=== PATIENT | male | born 1985 | race Caucasian/White ===

== ENCOUNTER 2019-01-13 17:26 | Emergency (ER) | payer SELFPAY ==
[2019-01-13 17:27] VITALS: BP 152/125; PULSE 101; RESP 18; TEMP 36.6; O2SAT 100; BMI 22.7
--- NOTE | 2019-01-13 17:42 | ED.DCSUM_ITS ---
- ER Visit Summary Date of Service: 01/13/19 Chief Complaint: Suicidal ideation History of Present Illness: The patient is a 33 M who presents via police because the police report patient was having suicidal thoughts. Patient states he took 8 Valium tablets today because he wanted to sleep until tomorrow m orning. Patient denies any suicidal ideations. Patient states he was having an argument with his and told her that if she does not pick him up tomorrow when he wakes up he is filing for divorce. Patient states that his is cheating on him with her drug dealer. Patient states his uses methamphetamines frequently. Patient admits to using marijuana. Patient states he had used methamphetamines in the past but currently does not use them. Patient denies any chest pain or shortness of breath. Patient denies any nausea or vomiting. Physical Examination: Vital signs are stable except for an elevated blood pressure 152/125 and a mild tachycardia of 101. Patient is afebrile. Patient is in no acute distress. Patient is anxious and agitated on examination. Patient denies any suicidal or homicidal ideations at the present time. Oral mucosa is pink and moist. Neck is supple. Trachea is midline. There is no JVD noted. Heart was regular rate and rhythm. Lungs are clear and equal bilateral. Abdomen is soft. Bowel sounds are normal. There is no tenderness. There is no guarding noted. Skin is warm dry. Cranial nerves II through XII are intact. There are no focal motor or sensory deficits noted. Test Results: BC and basic metabolic profile was normal. Urine tox screen was positive for amphetamines, benzodiazepines, and cannabinoids. Serum alcohol level was negative. Emergency Department Course and Treatment: Patient was observed in the emergency department. Patient adamantly denies any suicidal or homicidal ideations. Patient was seen by crisis. She felt that the patient is able to contract for safety. Patient was instructed to follow-up with crisis in 1 to 2 days. Patient understood and was agreeable with the plan. All questions were answered. Disposition: Discharge home Impression: Agitation This note was generated with [employer] dictation software. It may contain incorrect words, spelling, and punctuation that were not noted in review of the chart prior to signing ED Disposition - Plan for ED Patient: Disposition: Home or Assisted Living Diagnosis: Benzodiazepine overdose Instructions: CONTRACT, No Harm Referrals: Care Physician,No Primary [Primary Care Provider] - Counseling,Center [GROUP OF PHYSICIANS] - As soon as possible
[2019-01-13 17:48] LABS: Absolute Lymphocyte Count 2.13 X10^3/uL (0.83-4.51); Basophil# 0.03 X10^3/uL; Basophil% 0.5 % (0-1); Eosinophil# 0.06 X10^3/uL; Hemoglobin 16.3 g/dL (13.0-16.5); Lymphocyte # 2.13 X10^3/ul (4.0); Lymphocyte % 36.7 % (19-41); Mean Corp Hgb Conc 34.7 g/dL (32-36); Mean Corpuscular Hgb 29.5 pg (27.0-32.0); Mean Platelet Vol. 9.5 fl (6.2-12.0); Monocyte# 0.58 X10^3/uL; NRBC Flagged by Analyzer 0 % (0-5); Neutrophil % 51.6 % (47-70); Platelet Count 185 K/mm3 (150-450); RBC Distribution Width SD 37.2 fl (35.1-43.9); Red Blood Count 5.53 M/mm3 (4.6-6.2); White Blood Count 5.8 K/mm3 (4.4-11.0)
--- NOTE | 2019-01-13 17:50 | ED.RN ---
PT PINK SLIPPER BY POLICE, 1:1 SITTER IN ROOM AT TIME OF ARRIVAL
[2019-01-13 18:08] LABS: Anion Gap 7 (5-15); BUN 12 mg/dL (7-18); BUN/Creat Ratio 11.4 RATIO (10-20); Calcium,Total 8.8 mg/dL (8.5-10.1); Chloride 107 mmol/L (98-107); Creatinine, Serum 1.05 mg/dL (0.70-1.30); EST Glomerular Filtration Rate 86 mL/min (>60); Est Glom Filt Rate - Afr Amer 104 mL/min (>60); Estimated Creatinine Clearance 113.79 ml/min; Glucose 92 mg/dL (74-106); Potassium 3.7 mmol/L (3.5-5.1); Sodium Level 139 mmol/L (136-145)
[2019-01-13 18:13] LABS: Alcohol, Blood (Medical)-Serum < 3.0 mg/dL
--- NOTE | 2019-01-13 18:13 | ED.RN ---
PT REFUSING MEAL TRAY. THIS NURSE SPOKE WITH THE PT TO CONFIRM HE DOES NOT WANT THE MEAL
[2019-01-13 20:19] LABS: Amphetamine Urine VISTA POSITIVE (<1000 ng/mL); Barbiturate Urine VISTA NEGATIVE (< 200 ng/mL); Benzodiazepine Urine VISTA POSITIVE (< 200 ng/mL); Cocaine Urine VISTA NEGATIVE (< 300 ng/mL); Ecstacy Urine VISTA NEGATIVE (< 500 ng/mL); Methadone Urine VISTA NEGATIVE (< 300 ng/mL); PCP Urine VISTA NEGATIVE (< 25 ng/mL); THC Urine VISTA POSITIVE (< 50 ng/mL); Vista UDS pH Range 5
[2019-01-13 20:29] VITALS: RESP 18
[2019-01-13 21:23] VITALS: BP 145/88; PULSE 99; RESP 18; O2SAT 99
--- NOTE | 2019-01-13 21:23 | ED.RN ---
3 bags of personal belongings given to patient. PT borrowed [facility] cell phone to call for ride home. Discharge paperwork given, Counseling paperwork given. All questions answered, no further concerns.
== END 2019-01-13 21:24 | disposition home or self-care (01) ==
PROVIDERS: Emergency Provider Emergency Medicine
DX: R45.1 Restlessness and agitation (principal); F12.90 Cannabis use, unspecified, uncomplicated; F15.90 Other stimulant use, unspecified, uncomplicated
CPT/HCPCS: 80048; 80307; 80320; 85025; 99283; G0480

== ENCOUNTER 2020-02-09 19:45 | Emergency (ER) | payer MEDICAID, SELFPAY ==
[2020-02-09 19:48] VITALS: BP 164/110; PULSE 127; RESP 18; TEMP 36.9; O2SAT 98; BMI 27.7
[2020-02-09 20:18] VITALS: BP 143/82; PULSE 105; RESP 16; O2SAT 96
--- NOTE | 2020-02-09 20:33 | ED.DCSUM_ITS ---
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 methamphetamine. Patient injected what he thought was methamphetamine and became unresponsive. He was resuscitated with Narcan. He arrives alert oriented. He seems slightly anxious. He is tachycardic. He denies headache, visual, ocular auditory symptoms. He does report mild nasal congestion. No sore throat. Denies cough or shortness of breath. Nuys chest discomfort. He denies nausea, vomiting diarrhea. He states this is never happened to him before. Prior similar symptoms: No Recent Illness/Hospitalization: No - Past Medical History (1) IV drug user Status: Acute Past Medical History - Allergies and Home Meds Allergies/Adverse Reactions: Allergies No Known Allergies Allergy (Verified 02/09/20 19:52) Primary Care Physician: Care Physician,No Primary [Primary Care Provider] - Prior records reviewed: No Surgical History: no surgical history Lives: Spouse/ Significant Other Smoking Status: Current every day smoker Alcohol: Rare Drugs: - - Methamphetamine Review of Systems General: Denies: Chills, Fever, Malaise Eyes: Denies: Visual changes - bilaterally, Blurred Vision - bilaterally ENT: Denies: Rhinorrhea, Sore throat Cardiovascular: Reports: - - There is no history medic fever, heart murmur, SBE or being immune suppressed.. Denies: Chest pain, Palpitations Respiratory: Denies: Dyspnea, Cough, Dyspnea on exertion Gastrointestinal: Denies: Nausea, Vomiting, Diarrhea Musculoskeletal: Denies: Myalgias, Arthralgias Neurological: Denies: Headache, Weakness Hematologic: Denies: Easy bruising, Easy bleeding Physical Exam Vital Signs/Narrative: Vital Signs Temp Pulse Resp BP Pulse Ox 02/09/20 20:18 105 H 16 143/82 H 96 02/09/20 19:48 98.4 F 127 H 18 164/110 H 98 Inital Vital Signs reviewed: Yes General: Well nourished, Well developed, - - Is slightly anxious and animated. Head: Normocephalic, Atraumatic Eyes: Perrl, EOMI. Negative for: Pale conjunctiva, Scleral icterus ENT: Moist mucous membranes, No rhinorrhea Neck: Supple, Nontender, No lymphadenopathy, No JVD Cardiovascular: Regular rhythm, No murmurs, Normal S1, Normal S2, Tachycardia Respiratory: No distress, CTA bilaterally Abdomen: Soft, Nontender, Nondistended, Normal bowel sounds Rectal: Deferred Back: Nontender, Normal Inspection Skin: Normal color, No rash, - - Emery noted right and left upper extremity Neurological: Alert, Oriented x3, Cranial nerves II-XII grossly intact, Normal Strength, Normal Sensation Psychological: - - Slightly anxious Diagnostic/Tx/Re-eval - Medical Decision Making Since patient required Narcan and half-life of Narcan is 3060 minutes will observe for 45 minutes in the department since he received Narcan 10 minutes prior to arrival. Since patient remains awake and alert at 2034 he will be discharged to home with appropriate home-going instructions ED Disposition - Plan for ED Patient: Disposition: Home or Assisted Living Diagnosis: Respiratory arrest, Opiate or related narcotic overdose Instructions: ED Overdose Opiate Referrals: Care Physician,No Primary [Primary Care Provider] - [facility] [STAFF PHYSICIAN] - As soon as possible
[2020-02-09 20:48] VITALS: PULSE 100; RESP 20; O2SAT 96
== END 2020-02-09 20:49 | disposition home or self-care (01) ==
PROVIDERS: Emergency Provider Emergency Medicine
DX: R09.2 Respiratory arrest (principal); T40.601A Poisoning by unspecified narcotics, accidental (unintentional), initial encounter; F17.200 Nicotine dependence, unspecified, uncomplicated
CPT/HCPCS: 99285

== ENCOUNTER 2020-04-11 17:02 | Emergency (ER) | payer MEDICAID, SELFPAY ==
[2020-04-11 17:03] VITALS: BP 144/101; PULSE 101; RESP 16; TEMP 36.7; O2SAT 100; BMI 25.0
--- NOTE | 2020-04-11 17:14 | ED.DCSUM_ITS ---
- ER Visit Summary Date of Service: 04/11/20 Chief Complaint: [Dental pain] History of Present Illness: The patient is a 34 M [presents to the emergency department complaint of dental pain that he has had chronically for quite some time. Patient states that he is got a broken carried wisdom tooth that is c ausing him a lot of discomfort. Having hard time sleeping at night. Patient states that he is got an appointment in July to see a oral surgeon to have it removed and has not been able to find anybody that would take his insurance to see him sooner. Patient denies any fevers. He has no medical history otherwise.] Physical Examination: [HEENT-PERRLA, EOMI. Cranial nerves II through XII grossly intact. TMs clear. Mucous membranes moist. No adenopathy. Titian- patient has a broken and carried right lower third molar that is tender to palpation. No gingival erythema or abscess noted. No facial cellulitis. No adenopathy. Uvula midline without trismus. Cardiovascular-regular rate and rhythm without murmur or ectopy Lungs-clear to auscultation, chest wall stable without crepitus or subcu emphysema Abdomen-normoactive bowel sounds, soft, nontender, no rebound or rigidity, no peritoneal signs. Extremities-intact ?4, normal range of motion, normal pulses, atraumatic] Test Results: None [Indicated] Emergency Department Course and Treatment: [] Treatment Plan: [She will be given a prescription for clindamycin and a few [place] for pain. Patient will be given referral to oral surgeon in [facility].] Disposition: [Discharged home in stable condition] Impression: [Dental pain] This note was generated with [employer] dictation software. It may contain incorrect words, spelling, and punctuation that were not noted in review of the chart prior to signing ED Disposition - Plan for ED Patient: Referrals: Care Physician,No Primary [Primary Care Provider] -
--- NOTE | 2020-04-11 17:16 | DCINST.ED_ITS ---
ED Disposition - Plan for ED Patient: Instructions: ED Dental Cavity, ED Dental Pain Prescriptions: Clindamycin HCl [Cleocin] 300 mg PO Q6H #40 cap Prescription Printed Hydrocodone Bitart/Apap 5-325 [[place] 5MG-325MG] 1 tab PO Q4H PRN PRN 2 Days #10 tab PRN Reason: Pain Prescription Printed Referrals: Care Physician,No Primary [Primary Care Provider] - Eladio Manuel DDS [STAFF PHYSICIAN] - 5-7 Days
--- NOTE | 2020-04-11 17:44 | ED.RN ---
pt with hx of drug overdose. this brought to ed physician attention. pt acknowledges and depenses pain medication
== END 2020-04-11 17:46 | disposition home or self-care (01) ==
LOC: ED 17:23
PROVIDERS: Emergency Provider Emergency Medicine
DX: K08.89 Other specified disorders of teeth and supporting structures (principal); F17.200 Nicotine dependence, unspecified, uncomplicated
CPT/HCPCS: 99282

== ENCOUNTER 2020-04-15 04:19 | Emergency (ER) | payer MEDICAID, SELFPAY ==
[2020-04-15 04:19] VITALS: BP 164/98; PULSE 100; RESP 16; TEMP 35.8; O2SAT 100; BMI 29.9
--- NOTE | 2020-04-15 04:27 | ED.VISSUMM ---
- ER Visit Summary Date of Service: 04/15/20 Chief Complaint: Tooth pain History of Present Illness: The patient is a 34 M who presents with tooth pain. He has had this for over a week. He was seen here on April 11 and given clindamycin and what he says is Percocet what actually it is Stuart. He continues with pain. No fever, jaw swelling or facial swelling. He states that he is scheduled to see a dentist in July. He has not tried to get into any other appointments sooner. He is a smoker and continues to smoke. Physical Examination: Vital signs are reviewed. Mouth exam reveals a broken tooth #32. He has widespread dental decay with tenderness at tooth #32. There are no gingival abscesses noted. No Jomar's angina. He is handling his secretions normally. No cervical lymphadenopathy Test Results: None performed Emergency Department Course and Treatment: At this point I will give the patient a shot of Toradol here and change his antibiotics from clindamycin to penicillin. I will give him naproxen to take for pain at home. He will need to get any other further pain medications from a dentist. Treatment Plan: [] Disposition: Discharge Impression: Odontalgia This note was generated with [employer] dictation software. It may contain incorrect words, spelling, and punctuation that were not noted in review of the chart prior to signing ED Disposition - Plan for ED Patient: Disposition: Home or Assisted Living Instructions: ED Dental Pain Prescriptions: Naproxen [Naprosyn] 500 mg PO BID PRN #20 tab Transmission Status: Pending to [facility] Penicillin V Potassium 500 mg PO 4X/DAY #28 tab Transmission Status: Pending to [facility] Referrals: Care Physician,No Primary [Primary Care Provider] - April Livingston [NON-STAFF] -
[2020-04-15] MEDS: Penicillin Vk 250 MG Tablet 500 MG PO (04:38)
[2020-04-15] MEDS: Ketorolac 30 MG/ML Syringe IM (04:39)
[2020-04-15 04:41] VITALS: RESP 16
== END 2020-04-15 05:04 | disposition home or self-care (01) ==
LOC: ED 04:44
PROVIDERS: Emergency Provider Emergency Medicine
DX: K08.89 Other specified disorders of teeth and supporting structures (principal); F17.200 Nicotine dependence, unspecified, uncomplicated
CPT/HCPCS: 96372; 99282

== ENCOUNTER 2020-05-27 18:05 | Emergency (ER) | payer MEDICAID, SELFPAY ==
[2020-05-27 18:05] VITALS: BP 158/93; PULSE 101; RESP 16; TEMP 37.1; O2SAT 98; BMI 25.0
--- NOTE | 2020-05-27 19:55 | ED.DCSUM_ITS ---
- ER Visit Summary Date of Service: 05/27/20 Chief Complaint: Dental pain History of Present Illness: The patient is a 34 M with no primary care physician or dentist. He reports he has pain in his right mandibular third molar that began yesterday. It was a sharp pain is 10 of 10 at worst and is pain-free currently. Is worsened by eating. It is sensitive to hot and cold temperatures. Patient reports that he fell asleep in the waiting room when he woke up the pain was gone, but his face was swollen. Review of systems: General: No fever, chills, cold sweats. Cardiovascular: No chest pain, palpitations. Respiratory: No cough, shortness of breath, dyspnea on exertion. Gastrointestinal: No abdominal pain, nausea, vomiting, diarrhea, melena, or hematochezia. Genitourinary: No dysuria, frequency, hematuria. Skin: No rash. Neuro: No headache, numbness, weakness. Physical Examination: Vitals: Stable. Afebrile. Mouth: No trismus. No edema of the floor of the mouth. Obvious caries in the right mandibular third molar. The first, second molars are absent as are the fi rst and second premolars. He does have mild soft tissue swelling to his face. General: A&O x 3. NAD. Cardiovascular exam: Regular rate and rhythm, no murmur, rub or gallop. Respiratory exam: Clear to auscultation bilaterally. No wheezes or stridor. Abdominal exam: Soft, nontender, nondistended, normal bowel sounds. No peritoneal signs. Extremity: No clubbing, cyanosis, or edema. Emergency Department Course and Treatment: Patient no longer has pain. He was given clindamycin p.o. Treatment Plan: Patient be discharged on clindamycin. Instructed to follow-up with a dentist as soon as possible. He is given a list of local dentist. Return to the emergency department for any worsening symptoms. Disposition: To home in improved and stable condition. Impression: 1. Dental abscess. This note was generated with [employer] dictation software. It may contain incorrect words, spelling, and punctuation that were not noted in review of the chart prior to signing ED Disposition - Plan for ED Patient: Instructions: Common Myths About Pain Medications Prescriptions: Clindamycin [Cleocin] 300 mg PO 4X/DAY #80 capsule Referrals: Dentist,Your [STAFF PHYSICIAN] - As soon as possible
[2020-05-27] MEDS: Clindamycin HCl 150 MG Capsule 300 MG PO (20:32)
== END 2020-05-27 20:33 | disposition home or self-care (01) ==
LOC: ED 20:17
PROVIDERS: Emergency Provider Emergency Medicine
DX: K04.7 Periapical abscess without sinus (principal); F17.200 Nicotine dependence, unspecified, uncomplicated
CPT/HCPCS: 99283

== ENCOUNTER 2020-05-31 16:49 | Emergency (ER) | payer MEDICAID, SELFPAY ==
[2020-05-31 16:49] VITALS: BP 159/99; PULSE 95; RESP 16; TEMP 36.3; O2SAT 99; BMI 25.0
[2020-05-31] MEDS: Ketorolac 30 MG/ML Syringe IV (17:33)
[2020-05-31] MEDS: Ondansetron 4 MG/2 ML Vial IV (17:33)
--- NOTE | 2020-05-31 17:50 | ED.VISSUMM ---
- ER Visit Summary Date of Service: 05/31/20 Chief Complaint: Dental pain History of Present Illness: The patient is a 34 M presenting with dental pain and jaw swelling. Patient was seen in the ED 4 days ago for similar complaints. He states he has been on clindamycin and has been taking this regularly. He complains of increasing right lower jaw swelling. Denies fevers. Denies other complaints. Physical Examination: Vitals are stable. Patient is afebrile. Alert no acute distress. HEENT exam. right lower facial swelling Right lower molar tenderness with no surrounding fluctuance. No sublingual edema. Neck is supple. Lungs are clear and equal bilaterally. Heart is regular rate and rhythm. Extremities are unremarkable. Skin is warm and dry. No focal neurologic deficit. Remainder of exam is unremarkable. Emergency Department Course and Treatment: Patient was given Unasyn IV. He states he has been taking the clindamycin regularly. He will be started on Augmentin. Advised to follow-up with dentist. Advised return to ED for worsening complaints. Disposition: Discharge home Impression: Dental abscess This note was generated with [employer] dictation software. It may contain incorrect words, spelling, and punctuation that were not noted in review of the chart prior to signing ED Disposition - Plan for ED Patient: Referrals: Care Physician,No Primary [Primary Care Provider] -
--- NOTE | 2020-05-31 17:52 | ED.DEP ---
ED Disposition - Plan for ED Patient: Instructions: Dental Abscess Prescriptions: Amox/Clavulanate Tablet [Augmentin Tablet] 875 mg PO Q12H #20 tab Prescription Printed Referrals: Care Physician,No Primary [Primary Care Provider] -
== END 2020-05-31 18:38 | disposition home or self-care (01) ==
LOC: ED 17:40
PROVIDERS: Emergency Provider Emergency Medicine
DX: K04.7 Periapical abscess without sinus (principal)
CPT/HCPCS: 96365; 96375; 99283; J7050; A4216; J0295; J2405

== ENCOUNTER 2020-10-12 14:42 | Emergency (ER) | payer MEDICAID, SELFPAY ==
[2020-10-12 14:42] VITALS: BP 130/69; PULSE 96; RESP 14; TEMP 36.2; O2SAT 99; BMI 26.4
--- NOTE | 2020-10-12 15:41 | EDS_ITS ---
HPI History of Present Illness Chief Complaint: Laceration Informant: patient Narrative Narrative: Patient is a 40-year-old previously healthy male who presents to the emergency department for a cut to his right index finger. He states that the laceration occurred on Monday. He cleaned the wound out and superglue to it together. He ended up opening the wound back up yesterday after he struck his finger against a tree. He has been using ice over the area but this morning he woke up and the finger was swollen and tender. He denies any systemic symptoms including any fever/chills or nausea/vomiting. Of note patient is on amoxicillin and states he has 2 days left for a dental infection. He denies any significant painful finger movements. No other joints are painful or swollen. Patient states his last tetanus shot was within the past 5 years. PFSH PFSH Home Medications clindamycin HCl 300 mg PO 4X/DAY 04/15/20 [History Last Taken Unknown] naproxen 500 mg PO BID PRN #20 tab 04/15/20 [Rx Last Taken Unknown] penicillin V potassium 500 mg PO 4X/DAY #28 tab 04/15/20 [Rx Last Taken Unknown] clindamycin HCl 300 mg PO 4X/DAY #80 cap 05/27/20 [Rx Last Taken Unknown] amoxicillin-pot clavulanate 875 mg PO Q12H #20 tab 05/31/20 [Rx Last Taken Unknown] cephalexin 500 mg PO TID 7 Days #21 cap 10/12/20 [Rx Last Taken Unknown] sulfamethoxazole-trimethoprim [Bactrim DS] 1 tab PO BID 7 Days #14 tab 10/12/20 [Rx Last Taken Unknown] Allergy/AdvReac Type Severity Reaction Status Date / Time No Known Allergies Allergy Verified 10/12/20 14:42 Social History Smoking Status: Current every day smoker tobacco type: cigarettes ROS ROS ED Constitutional Constitutional ED: Denies chills or fever(s) Eyes Eyes: Denies change in vision ENT ENT ED: Denies epistaxis or rhinorrhea Cardiovascular Cardiovascular: Denies chest pain or palpitations Respiratory/Chest Respiratory/Chest: Denies cough, dyspnea or dyspnea on exertion Gastrointestinal Gastrointestinal: Denies abdominal pain, diarrhea, nausea or vomiting Musculoskeletal Musculoskeletal: Reports arthralgias; Denies back pain or neck pain Integumentary Reports rash Neurologic Neurologic: Denies dizziness, headache(s) or weakness EXAM Physical Exam Const Vital Signs: 10/12/20 14:42 Temperature 97.2 F L Temperature Source Temporal Pulse Rate 96 Respiratory Rate 14 Blood Pressure 130/69 H Blood Pressure Mean 89 Pulse Ox 99 Oxygen Delivery Method Room Air Positive well nourished and well developed General Appearance ED: well developed and NAD HEENT Reports normocephalic, head/scalp atraumatic and moist mucous membranes Eyes PERRL and EOMs intact bilaterally Neck supple Resp normal respiratory effort and clear to auscultation bilaterally Auscultation: Negative for rales, rhonchi or wheezes Cardio regular rate, regular rhythm and no murmurs Extremity Extremity Narrative: 1 cm linear laceration over right MCP of the right index finger. There is swelling, tenderness. He does have good range of motion. Does not help and passive flexion. No significant pain with extending the finger. Neurovascular intact. Low concern for flexor tenosynovitis. Neuro CN's II-XII intact bilaterally and no sensory deficits noted Sensorium / Orientation: alert Motor Exam: strength 5/5 throughout Psych mental status grossly normal MDM MDM MDM Narrative Medical decision making narrative: Patient presents the ED for finger infection after cut this past Monday. Patient is up-to-date on vaccinations. We will have him stop his amoxicillin he is currently on and start Bactrim and Keflex. No evidence of flexor tenosynovitis. Given warning signs for which to return to the ED for this. He will be discharged home in stable condition. Is to follow- up with his PCP. He understands and is agreeable this plan. All questions were answered. Discharge Plan Triage Chief Complaint: Laceration ED Provider: Javier Naranjo Dx/Rx/DC Orders Clinical Impression: Infected finger laceration Instructions: ED Laceration: Infected Repair Prescriptions: New cephalexin 500 mg capsule 500 mg PO TID 7 Days Qty: 21 RF: 0 sulfamethoxazole-trimethoprim [Bactrim DS] 800-160 mg tablet 1 tab PO BID 7 Days Qty: 14 RF: 0 No Action clindamycin HCl 150 MG capsule 300 mg PO 4X/DAY RF: 0 penicillin V potassium 500 MG tablet 500 mg PO 4X/DAY Qty: 28 RF: 0 naproxen 500 MG tablet 500 mg PO BID PRN Qty: 20 RF: 0 clindamycin HCl 150 MG capsule 300 mg PO 4X/DAY Qty: 80 RF: 0 amoxicillin-pot clavulanate 875 MG tablet 875 mg PO Q12H Qty: 20 RF: 0 Primary Care Provider: Care Physician,No Primary Referrals: Care Physician,No Primary [Primary Care Provider] - 2 Days for wound check Disposition Disposition: Home, Self Care Discharge Date/Time: 10/12/20 16:29
== END 2020-10-12 16:29 | disposition home or self-care (01) ==
LOC: ED 15:49
PROVIDERS: Emergency Provider Emergency Medicine
DX: S61.210A Laceration without foreign body of right index finger without damage to nail, initial encounter (principal); F17.210 Nicotine dependence, cigarettes, uncomplicated; X58.XXXA Exposure to other specified factors, initial encounter
CPT/HCPCS: 99282

== ENCOUNTER 2020-12-20 15:18 | Emergency (ER) | payer MEDICAID, SELFPAY ==
[2020-12-20 15:19] VITALS: BP 150/103; PULSE 110; RESP 16; TEMP 36.4; O2SAT 98; BMI 25.7
--- NOTE | 2020-12-20 15:54 | RAD_ITS ---
STUDY: X-RAY CHEST REASON FOR EXAM: Male, 35 years old. cough TECHNIQUE: Frontal portable view of the chest COMPARISON: None. FINDINGS: The lungs are clear and expanded. There is no demonstrated pleural abnormality. Normal size heart. Normal mediastinum and cristela. Normal visualized pulmonary arteries. Normal visualized aortic arch and descending thoracic aorta. Normal visualized thoracic spine. Normal visualized ribs, clavicles, and shoulders. There is no demonstrated abnormality of the visualized soft tissue structures of the upper abdomen. RAD/Chest 1 View (Portable) IMPRESSION: Normal x-ray examination of the chest. Electronically Signed: Georgia Gastelum MD at 17:26 EDT Tel , Service support ,
--- NOTE | 2020-12-20 15:58 | EX.ED.VIS.UR ---
HPI HPI - URI History of Present Illness Chief Complaint: Cough Informant: patient Onset/Context/Timing Onset: Days Context: Gradual Onset Timing: Continuous Current Severity: Mild Maximum Severity: Mild Associated Symptoms Associated Symptoms: Positive for Nasal Congestion, Nausea, Diarrhea, Shortness of Breath and Nonproductive cough; Negative for Vomiting and Hemoptysis Narrative Narrative: 35-year-old male noticing a past medical history currently on no medications. Does smoke. Recently was incarcerated for traffic violation. Said he is exposed to Covid while in prison. For the last 5 days he has had a sore throat, cough and shortness of breath. He is also had nausea and diarrhea but no vomiting. Prior similar symptoms: Yes Recent Illness/Hospitalization: No ROS ROS ED Review of Systems ROS Unobtainable: Denies due to encephalopathy Constitutional Constitutional ED: Reports chills and subjective; Denies fever(s) Eyes Eyes: Denies change in vision ENT ENT ED: Reports sore throat; Denies ear pain Cardiovascular Cardiovascular: Denies chest pain or palpitations Respiratory/Chest Respiratory/Chest: Reports cough and dyspnea Gastrointestinal Gastrointestinal: Reports diarrhea and nausea; Denies abdominal pain or vomiting Genitourinary Genitourinary ED: Denies dysuria Musculoskeletal Musculoskeletal: Reports myalgias Integumentary Denies rash Neurologic Neurologic: Denies headache(s) Psychiatric Psychiatric: Denies depression Endocrine Endocrinology: Denies polyuria Hematologic/Lymphatic Hematologic/Lymphatic: Denies easy bruising Allergic/Immunologic Allergic/Immunologic ED: Denies urticaria PFSH PFSH Home Medications NK 12/20/20 [History Last Taken Unknown] Allergy/AdvReac Type Severity Reaction Status Date / Time No Known Allergies Allergy Verified 12/20/20 15:22 Social History Smoking Status: Current every day smoker tobacco type: cigarettes EXAM Physical Exam Narrative Exam Narrative: 35-year-old male no acute distress vital signs stable afebrile. Pulse ox 90% on room air no signs hypoxia. HEENT exam unremarkable moist weeks membranes. No erythema or exudate. Neck nontender no lymphadenopathy. Lungs clear to auscultation bilaterally. Heart regular rhythm no murmur rate about 105. Abdomen soft nontender normal bowel sounds no peritoneal signs. Moving all 4 extremities. Calves nontender without edema or cords. Const Vital Signs: 12/20/20 15:19 12/20/20 15:53 Temperature 97.6 F L Temperature Source Temporal Pulse Rate 110 H Respiratory Rate 16 Respiratory Effort Normal Respiratory Depth Normal Respiratory Pattern Normal Blood Pressure 150/103 H Blood Pressure Mean 118 Pulse Ox 98 Oxygen Delivery Method Room Air Positive well nourished and well developed; Negative for obese, cachectic or contractures General Appearance ED: well developed and NAD; Negative for cachectic, contractures or pallor Nutritional Appearance: Negative for cachectic or obese HEENT normocephalic and atraumatic; Negative for scalp tenderness Face and Sinus: Negative for sinus tenderness or facial tenderness Eyes PERRL and EOMs intact bilaterally General Eye ED: Negative for pale conjunctiva Neck no lymphadenopathy, supple, no meningeal signs and no JVD General: Negative for anterior neck swelling Resp normal respiratory effort and clear to auscultation bilaterally Auscultation: Negative for rales, rhonchi or wheezes Cardio S1 normal heart sound, S2 normal heart sound and no murmurs Rate: tachycardic Rhythm: regular rhythm GI non-tender, non-distended and no masses Inspection: Negative for abdominal distention Auscultation: normoactive bowel sounds Palpation: soft; Negative for tender or guarding Back/Spine no CVA tenderness Extremity normal to inspection and full ROM General Extremety ED: Negative for cyanosis or tenderness General Extremity: Negative for cyanosis Neuro oriented x3 Sensorium / Orientation: alert, oriented to person, oriented to place and oriented to time Motor Exam: strength 5/5 throughout Psych mental status grossly normal Skin General Skin Exam: Negative for jaundice or pallor Lesions: no lesions Rashes: no rashes MDM MDM MDM Narrative Medical decision making narrative: 35-year-old male coming looks well vital signs stable. Rule out Covid versus other viral syndrome versus pneumonia. X-ray and Covid test being obtained. Repeat exam patient is doing well at 5:04 PM will be discharged home. Lab Data Attestation: I reviewed the patient's lab results. Lab results narrative: Rapid Covid test negative. Radiography Diagnostic Testing: Portable chest x-ray single view interpreted by myself shows no acute abnormality. Normal cardiac silhouette. Normal lung jj. No infiltrates. No pneumonia. No signs of Covid. Discharge Plan Triage Chief Complaint: Cough ED Provider: Ed Lowry Dx/Rx/DC Orders Prescriptions: No Action NK RF: 0 Primary Care Provider: Care Physician,No Primary
[2020-12-20 17:21] VITALS: PULSE 90; RESP 18; O2SAT 96
== END 2020-12-20 17:22 | disposition home or self-care (01) ==
PROVIDERS: Emergency Provider Emergency Medicine
DX: R05 Cough (principal); R19.7 Diarrhea, unspecified; R11.0 Nausea; F17.210 Nicotine dependence, cigarettes, uncomplicated
CPT/HCPCS: 71045; 87426; 99282; A4216

== ENCOUNTER 2020-12-23 00:43 | Emergency (ER) | payer MEDICAID, SELFPAY ==
[2020-12-23 00:44] VITALS: BP 145/87; PULSE 89; RESP 16; TEMP 37.1; O2SAT 97; BMI 25.7
--- NOTE | 2020-12-23 00:59 | RAD_ITS ---
STUDY: X-RAY CHEST REASON FOR EXAM: Male, 35 years old. cough TECHNIQUE: Single AP portable view of the chest. COMPARISON: 12/20/2020. FINDINGS: The lungs are clear and expanded. There is no demonstrated pleural abnormality. Normal size heart. Normal mediastinum and cristela. Normal visualized pulmonary arteries. Normal visualized aortic arch and descending thoracic aorta. Normal visualized thoracic spine. Normal visualized ribs, clavicles, and shoulders. There is no demonstrated abnormality of the visualized soft tissue structures of the upper abdomen. RAD/Chest 1 View (Portable) IMPRESSION: No acute cardiopulmonary disease. Electronically Signed: Ros Peterson MD at 2:35 EDT , Service support ,
[2020-12-23 01:16] VITALS: PULSE 83; RESP 18
[2020-12-23] MEDS: Ipratropium/Albuterol Sulfate 3 ML AMPUL.NEB INHALATION (01:16)
--- NOTE | 2020-12-23 01:25 | EX.ED.DYSGE1 ---
HPI History of Present Illness Chief Complaint: General Illness Informant: patient Narrative Narrative: Patient presented with complaints that he has every symptom of Covid except for the loss of taste. His smell is slightly decreased. This is been going on for about 6 days. About 8 days ago he got out of skilled nursing. He had been in a cell or in an area with 2 people who tested positive for Covid. He is coughing. He is not actually short of breath. He does have wheezing and he has been using his girlfriends inhaler. That does help. He states it has been so bad that he has anyone smoked for about a week. He did not get Covid vaccines at any time. He has had some mild nausea but can eat and drink. But he does not have much of an appetite. He has not had diarrhea. He has not vomited. He has diffuse myalgias. He has slight headache. No rashes. No dysuria. Nothing makes his symptoms better or worse. He was seen here couple days ago and had a negative Covid test. PFSH PFSH Medical History no medical history Home Medications acetaminophen [Tylenol] 650 mg PO Q4H PRN 12/23/20 [History Last Taken 12/23/20 00:30] albuterol sulfate [Ventolin HFA] 2 puff INHALATION Q4H PRN PRN #1 device 12/23/20 [Rx Last Taken Unknown] dexamethasone [Decadron] 6 mg PO DAILY #5 tab 12/23/20 [Rx Last Taken Unknown] ondansetron 4 mg PO Q8H 3 Days #9 tab 12/23/20 [Rx Last Taken Unknown] Allergy/AdvReac Type Severity Reaction Status Date / Time No Known Allergies Allergy Verified 12/20/20 15:22 Surgical History no surgical history Social History Smoking Status: Current every day smoker tobacco type: cigarettes ROS ROS ED Constitutional Constitutional ED: Reports chills, fever(s) and subjective Eyes Eyes: Denies blurry vision or change in vision ENT ENT ED: Reports rhinorrhea; Denies sore throat Cardiovascular Cardiovascular: Denies chest pain or palpitations Respiratory/Chest Respiratory/Chest: Reports cough; Denies dyspnea, dyspnea on exertion or sputum Gastrointestinal Gastrointestinal: Reports nausea; Denies abdominal pain, constipation, diarrhea, melena or vomiting Genitourinary Genitourinary ED: Denies dysuria Musculoskeletal Musculoskeletal: Reports arthralgias and myalgias Integumentary Denies rash Neurologic Neurologic: Reports headache(s); Denies paresthesias or weakness Psychiatric Psychiatric: Denies anxiety or depression Endocrine Endocrinology: Denies polydipsia or polyuria Allergic/Immunologic Allergic/Immunologic ED: Denies urticaria EXAM Physical Exam Const Vital Signs: 12/23/20 00:44 12/23/20 00:49 12/23/20 01:16 Temperature 98.8 F Temperature Source Temporal Pulse Rate 89 83 Respiratory Rate 16 18 Respiratory Effort Normal Respiratory Pattern Normal Blood Pressure 145/87 H Blood Pressure Mean 106 Pulse Ox 97 Oxygen Delivery Method Room Air 12/23/20 01:34 Temperature 98.8 F Temperature Source Temporal Pulse Rate 83 Respiratory Rate 18 Respiratory Effort Respiratory Pattern Blood Pressure 145/87 H Blood Pressure Mean 106 Pulse Ox 97 Oxygen Delivery Method Room Air Positive well nourished and well developed General Appearance ED: well developed and NAD HEENT Reports moist mucous membranes Negative for trauma or tenderness Eyes PERRL Neck no lymphadenopathy, supple and no JVD Chest Wall palpation of chest normal Resp normal respiratory effort Effort and Inspection: Negative for pain with movement Auscultation: wheezes; Negative for rales or rhonchi Cardio regular rate, regular rhythm and no murmurs GI normal to inspection, nondistended, normoactive bowel sounds and non-tender Palpation: soft Back/Spine no CVA tenderness Extremity normal to inspection General Extremety ED: Negative for edema or tenderness General Extremity: Negative for edema Neuro oriented x3 Sensorium / Orientation: alert Psych mental status grossly normal Skin no rashes or lesions noted MDM MDM MDM Narrative Medical decision making narrative: Patient's Covid screen is positive. His x-rays negative for acute process. Patient is not hypoxic. Patient does not meet any of the criteria for outpatient monoclonal antibodies. He is already about a week into the his symptoms. He is clinically doing well. I will get him something for nausea as he has had this off and on. I explained that the treatment is really symptomatic. He can use Tylenol rest fluids. I will write for an inhaler as he had some slight wheezing that is now better. He denies a history of asthma or COPD but is a longtime smoker. I will give him some steroids. This is primarily for the wheezing as I think he likely has bronchospastic disease. He has been using an inhaler and it has not resolved this. Radiography Diagnostic Testing: Radiology Impression Chest X-Ray 12/23/20 00:59 IMPRESSION: No acute cardiopulmonary disease. Electronically Signed: Ros Peterson MD at 2:35 EDT , Service support , Discharge Plan Triage Chief Complaint: General Illness ED Provider: Ravindra Aguirre Dx/Rx/DC Orders Clinical Impression: COVID-19, Acute bronchospasm Instructions: Caring for Someone Who Has COVID-19 Prescriptions: New dexamethasone [Decadron] 6 mg tablet 6 mg PO DAILY Qty: 5 RF: 0 albuterol sulfate [Ventolin HFA] 90 mcg/actuation HFA aerosol inhaler 2 puff inhalation Q4H PRN PRN (Reason: Wheezing) Qty: 1 RF: 0 ondansetron 4 mg tablet,disintegrating 4 mg PO Q8H 3 Days Qty: 9 RF: 0 No Action acetaminophen [Tylenol] 325 mg Tablet 650 mg PO Q4H PRN (Reason: Pain) RF: 0 Primary Care Provider: Care Physician,No Primary Referrals: Dex Still MD [STAFF PHYSICIAN] - 1 Week if not improving Care Physician,No Primary [Primary Care Provider] - Disposition Disposition: Home, Self Care
[2020-12-23] MEDS: Ondansetron ODT 4 MG Tablet PO (01:33)
[2020-12-23 01:34] VITALS: BP 145/87; PULSE 83; RESP 18; TEMP 37.1; O2SAT 97
[2020-12-23 03:05] VITALS: O2SAT 98
[2020-12-23] MEDS: dexAMETHasone 4 MG Tablet 6 MG PO (03:05)
== END 2020-12-23 03:06 | disposition home or self-care (01) ==
PROVIDERS: Emergency Provider Emergency Medicine
DX: U07.1 COVID-19 (principal); J98.01 Acute bronchospasm; F17.210 Nicotine dependence, cigarettes, uncomplicated
CPT/HCPCS: 71045; 87426; 94640; 99283

== ENCOUNTER 2021-12-19 13:36 | Emergency (ER) | payer MEDICAID, SELFPAY ==
[2021-12-19 13:36] VITALS: BP 146/88; PULSE 101; RESP 18; TEMP 36.3; O2SAT 98; BMI 29.5
--- NOTE | 2021-12-19 14:45 | EX.ED.DYSGE1 ---
HPI <KRISTOPHER Babcock - Last Filed: 12/19/21 15:01> History of Present Illness Chief Complaint: Lower Extremity Injury Narrative Narrative: 36-year-old male presents for evaluation of both feet. He is homeless and walks all day long. A week ago he developed blisters on the soles of both feet. He states it hurts to walk so he is shuffling a lot and his feet become swollen. He is cleaning the blisters with soap and water and takes his socks off to have them dry out. There is no purulent drainage. He is not diabetic. PFSH <KRISTOPHER Babcock - Last Filed: 12/19/21 15:01> [facility] Medical History no medical history Home Medications acetaminophen 325 mg tablet (Tylenol) 650 mg PO Q4H PRN Pain 12/23/20 [History Last Taken 12/23/20 00:30] albuterol sulfate 90 mcg/actuation aerosol inhaler (Ventolin HFA) 2 puff inhalation Q4H PRN PRN Wheezing #1 device 12/23/20 [Rx Last Taken Unknown] dexamethasone 6 mg tablet (Decadron) 6 mg PO DAILY #5 tabs 12/23/20 [Rx Last Taken Unknown] ondansetron 4 mg disintegrating tablet 4 mg PO Q8H 3 days #9 tabs 12/23/20 [Rx Last Taken Unknown] acetaminophen 500 mg tablet (Tylenol Extra Strength) 1,000 mg PO Q6H PRN pain #56 tabs 12/19/21 [Rx Last Taken Unknown] ibuprofen 600 mg tablet 600 mg PO Q6H PRN PRN pain #30 TABLETS 12/19/21 [Rx Last Taken Unknown] Allergy/AdvReac Type Severity Reaction Status Date / Time No Known Allergies Allergy Verified 12/19/21 13:38 Surgical History no surgical history Social History Smoking Status: Current every day smoker tobacco type: cigarettes ROS <KRISTOPHER Babcock - Last Filed: 12/19/21 15:01> ROS ED ROS Narrative Constitutional: Negative for fever, chills, malaise. Eyes: Negative for visual change. ENT: Negative for sore throat, rhinorrhea. CVS: Negative for palpitations, chest pain, syncope. Respiratory: Negative for shortness of breath, cough. GI: Negative for abdominal pain, nausea, vomiting. : Negative for dysuria. Neuro: Negative for motor/sensory dysfunction. Skin: Positive for blisters. Musc: Positive for lower extremity swelling. Heme: Negative for easy bruising, bleeding, lymphadenopathy. EXAM <KRISTOPHER Babcock - Last Filed: 12/19/21 15:01> Physical Exam Narrative Exam Narrative: CONST: Patient sitting in no acute distress. EYES: Normal inspection. NECK: Normal inspection. RESP: No respiratory distress, CTAB. CVS: Regular rate and rhythm, no murmur, no gallop. SKIN: 1x1 cm full thickness blister plantar left foot at base of toes, 3 x 2 cm popped blister plantar surface of right foot. No surrounding erythema, no fluctuance or drainage expressed. EXTREMITIES: Trace pedal edema, full ROM, 2+ DP pulses. NEURO: Oriented x4. PSYCH: Normal affect. Const Vital Signs: 12/19/21 13:36 Temperature 97.4 F L Temperature Source Temporal Pulse Rate 101 H Respiratory Rate 18 Blood Pressure 146/88 H Blood Pressure Mean 107 Pulse Ox 98 Oxygen Delivery Method Room Air <Dr. Robert Schreiber, - Last Filed: 12/19/21 15:55> Physical Exam Const Vital Signs: 12/19/21 13:36 Temperature 97.4 F L Temperature Source Temporal Pulse Rate 101 H Respiratory Rate 18 Blood Pressure 146/88 H Blood Pressure Mean 107 Pulse Ox 98 Oxygen Delivery Method Room Air MDM <KRISTOPHER Babcock - Last Filed: 12/19/21 15:01> [facility] Narrative Medical decision making narrative: Patient has popped blisters on the plantar surfaces of both feet that developed from excessive walking as he is homeless. There is no evidence of infection. Extremities are neurovascularly intact with trace pedal edema. This is likely because he slept on a staircase and feet were not elevated. I recommended he elevate and wear his compression socks. I prescribed ibuprofen and Tylenol as he has prescription coverage and recommended he pad the area inside his socks and shoes. He was discharged in stable condition. <Dr. Robert Schreiber DO - Last Filed: 12/19/21 15:55> [facility] Narrative Medical decision making narrative: This patient was seen with a PA/CORROSION TECHNICIAN Individually assessed they patient including history and physical. I have reviewed everything on the chart that is available and agree with the documentation provided by the PA/CORROSION TECHNICIAN including discussion about the assessment, treatment plan, discussion, and return precautions. Patient seen and examined.. He does have some mild swelling to the bilateral feet. He has some blisters and dry skin skin on the plantar surface of both feet. There are some slight edema. There is not appear to be excessive warmth or signs of infection. Patient states that he slept upright in restorationist stairwell last night did not elevate his feet and that does have tend to make the swelling worse. He states that he has been on his feet most of the day. He does spend most of the day every day on his feet and he states this helps the swelling. He states he does have some compression socks that he uses off and on. He states he does not have the money to afford prescriptions for ibuprofen or Tylenol but he does have prescription coverage. He was given prescriptions for these. He is counseled on foot care. I do not believe he needs any antibiotics. He is discharged in stable condition. Patient has popped blisters on the plantar surfaces of both feet that developed from excessive walking as he is homeless. There is no evidence of infection. Extremities are neurovascularly intact with trace pedal edema. This is likely because he slept on a staircase and feet were not elevated. I recommended he elevate and wear his compression socks. I prescribed ibuprofen and Tylenol as he has prescription coverage and recommended he pad the area inside his socks and shoes. He was discharged in stable condition. Discharge Plan Triage Chief Complaint: Lower Extremity Injury ED Midlevel Provider: Lucy Meyers ED Provider: Robert Schreiber Dx/Rx/DC Orders Clinical Impression: Blister (nonthermal), right foot, initial encounter, Blister of foot Instructions: ED Blister (Adult) Prescriptions: New ibuprofen 600 mg tablet 600 mg PO Q6H PRN PRN (Reason: pain) Qty: 30 0RF acetaminophen [Tylenol Extra Strength] 500 mg tablet 1,000 mg PO Q6H PRN (Reason: pain) Qty: 56 0RF No Action acetaminophen [Tylenol] 325 mg Tablet 650 mg PO Q4H PRN (Reason: Pain) dexamethasone [Decadron] 6 mg tablet 6 mg PO DAILY Qty: 5 0RF albuterol sulfate [Ventolin HFA] 90 mcg/actuation HFA aerosol inhaler 2 puff inhalation Q4H PRN PRN (Reason: Wheezing) Qty: 1 0RF ondansetron 4 mg tablet,disintegrating 4 mg PO Q8H 3 Days Qty: 9 0RF Primary Care Provider: Care Physician,No Primary Referrals: Care Physician,No Primary [Primary Care Provider] - Disposition Disposition: Home, Self Care Discharge Date/Time: 12/19/21 15:12
== END 2021-12-19 15:12 | disposition home or self-care (01) ==
LOC: ED 15:08
PROVIDERS: Emergency Provider Student in an Organized Health Care Education/Training Program; Visit Provider Student in an Organized Health Care Education/Training Program
DX: S90.821A Blister (nonthermal), right foot, initial encounter (principal); S90.822A Blister (nonthermal), left foot, initial encounter; F17.210 Nicotine dependence, cigarettes, uncomplicated; Z59.00 Homelessness unspecified; Y93.01 Activity, walking, marching and hiking
CPT/HCPCS: 99282